=== PATIENT | female | born 1995 | race Caucasian/White ===

== ENCOUNTER 2019-06-30 11:48 | Inpatient (IN) ==
[2019-06-30] MEDS ORDERED: ALBUT/IPRATROP 3MG/0.5MG NEB 3 ML VIAL INH STA (12:24)
[2019-06-30] MEDS ORDERED: methylPREDNISolone 125 MG/2 ML VIAL IV STA (12:24)
[2019-06-30] MEDS ORDERED: SODIUM CHLORIDE 0.9% 1000ML 1,000 ML IV SCH (12:30)
[2019-06-30 12:54] LABS: Basophils # (auto) 0.03 K/uL (0-0.2); Basophils % (auto) 0.2 %; Eosinophils # (auto) 0.09 K/uL (0-0.5); Eosinophils % (auto) 0.6 %; Hematocrit (blood only) 35.6 % (37-47); Hemoglobin 12.4 g/dL (12.0-16.0); Immature Granulocytes # (auto) 0.03 K/uL (0.00-0.02); Immature Granulocytes % (auto) 0.2 %; Lymphocytes # (auto) 1.43 K/uL (1.2-3.4); Lymphocytes % (auto) 10.3 %; Mean Corpuscular Hemoglobin 28.9 pg (25-34); Mean Corpuscular Hgb Conc 34.8 g/dL (32-36); Mean Platelet Volume 8.1 fL (7.4-10.4); Monocytes # (auto) 0.86 K/uL (0.11-0.59); Monocytes % (auto) 6.2 %; Neutrophils # (auto) 11.41 K/uL (1.4-6.5); Neutrophils % (auto) 82.5 %; Platelet Count 396 K/uL (130-400); RDW Coefficient of Variation 12.8 % (11.5-14.5); RDW Standard Deviation 38.4 fL (36.4-46.3); Red Blood Count 4.29 M/uL (4.2-5.4); White Blood Count 13.85 K/uL (4.8-10.8)
[2019-06-30 13:10] LABS: Partial Thromboplastin Ratio 1.3; Partial Thromboplastin Time 34.3 Seconds (21.0-31.0); Prothrombin Time 10.6 Seconds (9.0-12.0)
[2019-06-30 13:15] LABS: D Dimer 990 ug/L FEU (0-500)
[2019-06-30 13:16] LABS: Albumin Level 2.9 gm/dl (3.4-5.0); BUN Creatinine Ratio 10.3 (10-20); Creatinine Clr Calc Pharmacy 122.3 ml/min; Est GFR (African American) 143.6; Est GFR (Non-African American) 123.9; Magnesium 2.1 mg/dl (1.8-2.4)
[2019-06-30 13:18] LABS: Albumin Globulin Ratio 0.6 (0.9-2); Bilirubin,Total 0.6 mg/dl (0.2-1); Total Protein 7.9 gm/dl (6.4-8.2)
--- NOTE | 2019-06-30 13:28 | XRay Report ---
XR chest 1V portable CLINICAL HISTORY: 24 years-old Female presenting with Dyspnea. TECHNIQUE: Portable upright AP view of the chest was obtained. COMPARISON: None. FINDINGS: Cardiomediastinal silhouette normal. Mild pulmonary vascular prominence. Patchy opacities in the left midlung and more dense opacities in the left lung base. A small left pleural effusion is not exclude d. There may also be a trace right pleural effusion. Osseous structures normal. Upper abdomen normal. IMPRESSION: 1. Patchy infiltrates in the left midlung and more dense infiltrates at the left lung base concernin g for multifocal pneumonia. ACT 112: Negative or not required by law. Electronically signed by: Luther Lubin M.D. 06/30/2019 1:26 PM
[2019-06-30 13:30] LABS: Influenza A virus by PCR Neg for Influ A (Neg); Influenza B virus by PCR Neg for Influ B (Neg)
[2019-06-30] MEDS ORDERED: OPTIRAY 320 125ml IV PRN (13:43)
--- NOTE | 2019-06-30 13:58 | CT Scan Report ---
CT angio chest PE protocol CLINICAL HISTORY: 24 years-old Female presenting with recent sinus infection, now with left-sided warren st and shoulder pain, multifocal pneumonia radiograph, clinical concern for pulmonary embolus. TECHNIQUE: Multidetector CT angiography of the chest was performed after administration of intravenou s contrast. 3-D volumetric and/or maximum intensity projection (MIP) images were subsequently reconst ructed for review. IV contrast: 120 mL of Optiray 320. One or more dose lowering techniques were used consistent with the principles of ALARA (as low as reasonably achievable), including automatic expos ure control, mA or kV adjustment to individual patient size, and/or use of iterative reconstruction. COMPARISON: None. CT DOSE (mGy.cm): The estimated cumulative dose is 226.06 mGy.cm. FINDINGS: Manager Integration topogram: Unremarkable. Pulmonary vasculature: The study is suboptimal for the assessment of the pulmonary vascular tree secondary to respiratory mo tion artifact. Filling defect in the segmental pulmonary arteries to the posterior basal left lower l obe no other pulmonary embolus is appreciated. Main pulmonary artery is not enlarged. No flattening o f the interventricular septum. No intracardiac filling defect. No reflux of contrast into the hepatic veins. Remaining chest: Soft tissues: Normal thyroid and thoracic inlet. View prominent left hilar lymph nodes. Normal aorta. Normal heart size. Small left pleural effusion, which is simple appearing. No evidence of pleural en hancement allowing for the phase of contrast. Upper abdomen normal. Lungs and airways: No pneumothorax. Bronchial wall thickening predominantly in the left lung in the l ower lobe. Pulmonary arteries are not significantly enlarged relative to adjacent bronchi. No interlo bular septal thickening. Consolidation in the superior lingula with tree-in-bud opacities more superi alana in the lingula and posterior apical left upper lobe. Patchy consolidation in the posterior basal left lower lobe. This is not all peripheral though is in the same distribution as the vascular abnor mality. Musculoskeletal: Normal osseous structures. IMPRESSION: 1. Findings highly suspicious for acute pulmonary embolus in segmental pulmonary arteries to the pos terior basal left lower lobe. No CT evidence of right heart strain. 2. Patchy consolidation in the posterior basal left lower lobe raises concern for pulmonary infarct given the distribution though the distribution is not all peripheral. Alternatively, this could relat e multifocal pneumonia. 3. Consolidation in the lingula without evidence of a regional pulmonary embolus. Extensive surround ing patchy tree-in-bud opacities in the left upper lobe. This is strongly suggestive of pneumonia wit h airway spread of infection. 4. Small left pleural effusion, which is simple appearing. Presumably this is a parapneumonic effusi on. The report will be called/faxed according to standard departmental protocol for a critical finding. ACT 112: Negative or not required by law. Electronically signed by: Luther Lubin M.D. 06/30/2019 1:57 PM
[2019-06-30] MEDS ORDERED: cefTRIAXone SODIUM 1,000 MG/50 ML BAG IV STA (14:13)
[2019-06-30] MEDS ORDERED: DOXYCYCLINE HYCLATE 100 MG CAP PO STA (14:13)
[2019-06-30] MEDS ORDERED: HEPARIN SODIUM/DEXTROSE 25,000 UNITS/500 ML BAG IV SCH (14:15)
--- NOTE | 2019-06-30 14:39 | History & Physical Report ---
Date of Service June 30, 2019 Assessment & Plan (1) Acute pulmonary embolism: Heparin IV drip. Will switch to PO Eliquis or Xarelto once found out the cost from her insurance. Would favor Xarelto given poor compliance with doxycycline as only once a day. Stop estrogen containing contraceptive. Given size of embolus and provoked from PNA would recommend shorter 3 month treatment but will leave final decision to PCP. No need for US venous dopplers as would not exchange mechanic. (2) Left lower lobe pneumonia: Ceftriaxone 1g daily, can likely change to PO antibiotics after second IV dose tomorrow. Switch doxycycline to azithromycin, given patient non-compliance with prior course concern is for resistance. Incentive spirometry, flutter valve - patient to take these home once discharged (3) Asthma exacerbation: Diagnosis based on improved with steroids and nebulizers previously Solu-medrol 125mg IV given in ER Continue Prednisone 40mg PO daily Duonebs Q4R + PRN I do not suspect she requires a maintenance inhaler based on her baseline functioning but recommend PFTs in approx 6 weeks. (4) Exercise-induced asthma: Albuterol PRN as outpatient. As above (5) Pericarditis: Possible. Diagnoses entertained due to typical positional nature of her pain. No widespread ST elevations on EKG however or friction rub on exam. Repeat EKG in AM. Troponin added to AM labs and if elevated at all would recommend echocardiogram. (6) Tachycardia: Secondary to pulmonary embolism and community acquired PNA as above. Give additional NSS 1L bolus now, however I suspect she is close to euvolemic at this point after 1L given in ER. (7) Anxiety: Continue citalopram 20mg PO daily. 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 Her symptoms started 2 weeks ago with typical URI Sx with sinus drainage, nasal congestion, post nasal drip and productive cough (started greenish but now clear). She initially went to [facility] and was started on 5 day course of prednisone for wheezing on the left side of her chest with sats 90% on RA. She felt this helped with her cough but as soon as she stopped her wheezing, chest tightness and coughing became worse again. Therefore she returned to [facility] again on Tuesday and was given nebulizer treatment in the office which helped a lot and she was started on doxycycline. However, she di not take this regularly and vomiting after taking some, she has taken none in the last 2 days. 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 On she started having lightheadedness and left sided rib pain forcing her to go home from work early. She has inspiratory sharp pain on her left ribs and left shoulder. Worse with coughing. Not sleeping due to pain as worse with lying down. She denies any family history of DVTs/PEs or autoimmune conditions. She has a personal history of exercise induced asthma but never had an asthma exacerbation requiring anything other than her albuterol prior to this. She is currently taking an estrogen containing oral contraceptive. Allergies Allergy/AdvReac Type Severity Reaction Status Date / Time vancomycin Allergy Rash Unverified 06/30/19 12:20 Home Medications Home Medications Medication Instructions Recorded Confirmed Type cetirizine [Zyrtec] 10 mg PO DAILY PRN 06/30/19 06/30/19 History citalopram [Celexa] 20 mg PO DAILY 06/30/19 06/30/19 History guanfacine 2 mg PO DAILY 06/30/19 06/30/19 History Past Med/Surg History Medical History (Updated 07/01/19 @ 03:29 by Fareed Bustamante MD) Anxiety Exercise-induced asthma Social History Preferred Language: Vietnamese Communication Ability: Effective Upper Trimmer Required: No Beliefs That Will Affect Care: None Current Living Situation: Significant Other current occupational status: student 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 Other Information That Helps Us Care for You: No Feels Safe at Home: Yes Safety Concerns: Feels Safe At This Time Smoking Status: Never smoker Hx Alcohol Use: Yes Alcohol type: beer Hx Substance Use: Yes substance use type: marijuana Last Used Substance Other:: 2 years ago Review of Systems Review of Systems: All systems reviewed & are unremarkable except as noted in HPI & below Physical Exam Constitutional: WD/WN, vitals as above Eyes: + anicteric sclerae; normal pupil size ENMT: external ear and nose normal, oropharynx normal Neck: trachea midline, no thyromegaly Respiratory: normal respiratory effort, + hyperresonance to percussion and + cough; no respiratory distress, no labored breathing, no retractions and does not use accessory muscles Auscultation: + diminished lung sounds (bibasal L > R) and + crackles (left sided); no rales, no rhonchi and no wheezes Cardiovascular: Rate/Rhythm: regular rhythm and + tachycardic Heart Sounds: no murmur Vessels: no JVD Extremities: normal capillary refill; no calf tenderness and no pedal edema Gastrointestinal (Abdomen): normal bowel sounds, soft, nontender, no hepatosplenomegaly Musculoskeletal: no cyanosis or clubbing, extremities motor strength 5/5 Skin: no rashes, warm and dry Neurologic: moves all extremities and awake; no focal motor deficits and not confused Psychiatric: A+Ox3, euthymic affect Genitourinary: no CVA tenderness Lymphatic: no cervical or axillary lymphadenopathy Results & Data Vital Signs (Past 12 Hours) Vital Signs Temp Pulse Pulse Resp BP Pulse Ox 06/30/19 13:48 115 H 19 133/83 99 06/30/19 13:30 111 H 99 06/30/19 13:00 109 H 21 95 06/30/19 12:45 114 H 21 96 06/30/19 12:30 113 H 20 96 06/30/19 12:21 105 H 96 06/30/19 12:18 110 H 136/89 97 06/30/19 11:55 36.4 C L 112 H 18 120/[address] angio chest PE protocol IMPRESSION: 1. Findings highly suspicious for acute pulmonary embolus in segmental pulmonary arteries to the posterior basal left lower lobe. No CT evidence of right heart strain. 2. Patchy consolidation in the posterior basal left lower lobe raises concern for pulmonary infarct given the distribution though the distribution is not all peripheral. Alternatively, this could relate multifocal pneumonia. 3. Consolidation in the lingula without evidence of a regional pulmonary emb olus. Extensive surrounding patchy tree-in-bud opacities in the left upper lobe. This is strongly suggestive of pneumonia with airway spread of infection. 4. Small left pleural effusion, which is simple appearing. Presumably this is a parapneumonic effusion. Medications Administered Ceftriaxone 1g IV IV standard heparin with bolus Solu-medrol 125mg IV ECG Indication: tachycardia Rate (beats per minute): 110 Rhythm: sinus tachycardia Findings: no ST elevation, no acute ischemic change and no prolonged QT Comparison ECG Date: no prior available Code Status & VTE Plan Code Status Full VTE Prophylaxis Plan VTE Prophylaxis will be ordered: Yes PG Care Time/CCT Total # of Minutes Spent Total Time Spent with Patient: Total time spent is greater than 50% in coordination of care (as documented) at patient's floor/unit and/or counseling patient: Coding Level of Care Code 73683 Initial Inpt Care Lvl 3 Diagnoses Acute pulmonary embolism I26.99 Acute cor pulmonale presence: unspecified Pulmonary embolism type: unspecified Left lower lobe pneumonia J18.9 Pneumonia type: due to unspecified organism Asthma exacerbation J45.21 Asthma severity: mild Asthma persistence: intermittent Exercise-induced asthma J45.990 Pericarditis I30.1 Pericarditis type: infectious Infectious pericarditis etiology: unspecified Chronicity: acute Tachycardia R00.0 Anxiety F41.9 (1) Acute pulmonary embolism Acute cor pulmonale presence: unspecified Pulmonary embolism type: unspecified Qualified Code(s): I26.99 - Other pulmonary embolism without acute cor pulmonale (2) Left lower lobe pneumonia Pneumonia type: due to unspecified organism Qualified Code(s): J18.9 - Pneumonia, unspecified organism (3) Pericarditis Pericarditis type: infectious Infectious pericarditis etiology: unspecified Chronicity: acute Qualified Code(s): I30.1 - Infective pericarditis (4) Asthma exacerbation Asthma severity: mild Asthma persistence: intermittent Qualified Code(s): J45.21 - Mild intermittent asthma with (acute) exacerbation :
[2019-06-30] MEDS ORDERED: SODIUM CHLORIDE 0.9% 1000ML 1,000 ML IV ONE (14:43)
[2019-06-30 14:49] LABS: Pregnancy Test, Serum Negative (Negative)
[2019-06-30] MEDS ORDERED: HEPARIN SOD (PORCINE) 1000 UNIT/ML 10 ML VIAL ONE (14:55)
--- NOTE | 2019-06-30 15:12 | Emergency Department Note ---
Entered by Nicole Flores acting as a scribe for History of Present Illness General Chief complaint: Abdominal Pain Stated complaint: SOB,SHARP ABDOMINAL PAIN AND SHOULDER PAIN Time Seen by Provider: 06/30/19 12:07 Source: patient and family (mother) Mode of arrival: ambulatory Limitations: no limitations History of Present Illness Provider complaint: Shortness of breath Onset (ago): day(s) 2 Location: chest Pain Consistency: + other (worsening) Maximum Pain Intensity: 6 Quality: + other (shortness of breath) Associated symptoms: + cough, + fever/chills, + loss of appetite, + nausea/vomiting (positive nausea, negative vomiting) and + other (Additional symptoms: left rib pain, left shoulder pain, difficulty sleeping. Denies: diarrhea, urinary symptoms) Treatments prior to arrival: none The patient is a 24 year old female with a history of anxiety who presents to the Emergency Room with complaints of worsening shortness of breath starting 2 days ago. The patient reports that she becomes winded after walking up the stairs to her apartment, which is unusual for her. She states that her shortness of breath has been accompanied by pain is located in her left ribs and left shoulder. She notes that her pain worsens with coughing and lying either flat and on her side. She notes that her pain throbs when she lies these ways. She adds that she has had difficulty sleeping secondary to her pain. The patient also complains of some fever and loss of appetite but otherwise denies any vomiting, diarrhea, and urinary symptoms. She mentions that she had a sinus infection 2 weeks ago and was given a course of antibiotics at [facility]. She explains that she started taking these antibiotics 12 days ago and that they made her nauseous. They patient reports that she is on control and does not think that she is . She denies smoking. Home Medications Home Medications Medication Instructions Recorded Confirmed Type cetirizine [Zyrtec] 10 mg PO DAILY PRN 06/30/19 06/30/19 History citalopram [Celexa] 20 mg PO DAILY 06/30/19 06/30/19 History guanfacine 2 mg PO DAILY 06/30/19 06/30/19 History azithromycin [Zithromax] 250 mg PO QAM #4 tab 07/01/19 Rx cefdinir 300 mg PO BID 6 Days #12 cap 07/01/19 Rx prednisone 40 mg PO DAILY #10 tab 07/01/19 Rx rivaroxaban [Xarelto] 1 ea PO BID #51 ea 07/01/19 Rx rivaroxaban [Xarelto] 20 mg PO DAILY #30 tab 07/01/19 Rx Allergies Allergy/AdvReac Type Severity Reaction Status Date / Time vancomycin Allergy Rash Unverified 06/30/19 12:20 Past Med/Surg History Social History Preferred Language: Beninese Communication Ability: Effective Contracting Executive Required: No Beliefs That Will Affect Care: None Current Living Situation: Significant Other current occupational status: student 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 and A total of 10 systems reviewed and were otherwise negative Physical Exam Vital Signs Vital Signs - 24 hr 06/30/19 11:55 06/30/19 12:18 06/30/19 12:21 Temperature 36.4 C L Temperature Source Oral Pulse Rate 112 H 110 H 105 H Pulse Rate [Apical] Pulse Rate from SpO2 Sensor 108 H 104 H Respiratory Rate 18 Respiratory Effort / Characteristics Non-Labored Spontaneous Respiratory Depth Normal Blood Pressure 120/67 136/89 Blood Pressure Mean 84 93 Blood Pressure Position Sitting Pulse Oximetry 95 97 96 Oxygen Delivery Method Room Air Sepsis Recent Fever Within 48 Hours No Sepsis Action Taken by Nursing No Action Required 06/30/19 12:30 06/30/19 12:45 06/30/19 13:00 Temperature Temperature Source Pulse Rate 113 H 109 H Pulse Rate [Apical] 114 H Pulse Rate from SpO2 Sensor 113 H 111 H Respiratory Rate 20 21 21 Respiratory Effort / Characteristics Non-Labored Spontaneous Respiratory Depth Blood Pressure Blood Pressure Mean Blood Pressure Position Pulse Oximetry 96 96 95 Oxygen Delivery Method Room Air Sepsis Recent Fever Within 48 Hours Sepsis Action Taken by Nursing 06/30/19 13:30 06/30/19 13:48 Temperature Temperature Source Pulse Rate 111 H 115 H Pulse Rate [Apical] Pulse Rate from SpO2 Sensor 110 H 115 H Respiratory Rate 19 Respiratory Effort / Characteristics Respiratory Depth Blood Pressure 133/83 Blood Pressure Mean 91 Blood Pressure Position Pulse Oximetry 99 99 Oxygen Delivery Method Sepsis Recent Fever Within 48 Hours Sepsis Action Taken by Nursing Vital signs reviewed. General: Acutely ill-appearing female, in no significant distress. HEENT: No scleral icterus, PERRLA, neck supple. Atraumatic. Cardiovascular: Tachycardic rate and regular rhythm, no extra sounds. Pulmonary: Clear to auscultation bilaterally, slightly increased work of breathing. Abdomen: Soft, nontender, nondistended, positive bowel sounds. Musculoskeletal: Atraumatic, no peripheral edema. Neurologic: Patient awake alert and oriented x 3 Skin: Warm, dry, no rash Course Course 1214: The patient was evaluated in room C2B, and a complete history and physical examination were performed. 1435: I discussed the patient's case with Dr. Dianna Oconnor. Dr. Bustamante will evaluate the patient for further management. Consultations Consultation #1: I discussed the patient's case with Dr. Dianna Oconnor. Dr. Bustamante will evaluate the patient for further management. Time: 14:35 Administered Medications Discontinued Medications Acetaminophen (Tylenol) 650 mg PO Q4H PRN PRN Reason: pain/fever Stop: 07/30/19 17:27 Last Admin: 07/01/19 08:25 Dose: 650 mg Documented by: [id number] Albuterol (Duoneb) 3 ml INH NOW STA Stop: 06/30/19 12:25 Last Admin: 06/30/19 12:45 Dose: 3 ml Documented by: [id number] Albuterol (Duoneb) 3 ml NEB Q4R SHALONDA Stop: 07/30/19 22:59 Last Admin: 07/01/19 11:49 Dose: 3 ml Documented by: [id number] Admin: 07/01/19 07:34 Dose: 3 ml Documented by: [id number] Admin: 07/01/19 03:04 Dose: 3 ml Documented by: [id number] Admin: 06/30/19 23:05 Dose: 3 ml Documented by: [id number] Azithromycin (Zithromax) 500 mg PO ONE ONE Stop: 07/01/19 09:01 Last Admin: 07/01/19 08:28 Dose: 500 mg Documented by: [id number] Citalopram Hydrobromide (Celexa) 20 mg PO DAILY SHALONDA Stop: 07/31/19 08:59 Last Admin: 07/01/19 08:26 Dose: 20 mg Documented by: [id number] Doxycycline Hyclate (Vibramycin) 100 mg PO NOW STA Stop: 06/30/19 14:14 Last Admin: 06/30/19 15:00 Dose: 100 mg Documented by: [id number] Doxycycline Hyclate (Vibramycin) 100 mg PO BID SHALONDA Stop: 07/06/19 21:01 Last Admin: 06/30/19 20:42 Dose: 100 mg Documented by: [id number] Guaifenesin (Mucinex) 1,200 mg PO Q12 [facility] Stop: 07/31/19 08:59 Last Admin: 07/01/19 08:27 Dose: 1,200 mg Documented by: [id number] Heparin Sodium (Porcine) (Heparin Iv Bolus) Confirm Administered Dose 10,000 units .ROUTE .[facility] Stop: 06/30/19 14:56 Last Admin: 06/30/19 14:57 Dose: 5,000 units Documented by: [id number] Cosigned by: [id number] Heparin Sodium/Dextrose () 1 ea IV NOW STA; Protocol Stop: 06/30/19 14:14 Last Admin: 06/30/19 15:06 Dose: Not Given Documented by: [id number] Sodium Chloride (Nss 1000ml) 1,000 mls @ 999 mls/hr IV .Q1H1M [facility] Stop: 06/30/19 13:30 Last Infusion: 06/30/19 13:56 Dose: 0 mls/hr Documented by: [id number] Admin: 06/30/19 13:01 Dose: 999 mls/hr Documented by: [id number] Ceftriaxone Sodium (Rocephin) 1,000 mg in 50 mls @ 100 mls/hr IV NOW STA Stop: 06/30/19 14:42 Last Infusion: 06/30/19 15:31 Dose: 0 mls/hr Documented by: [id number] Admin: 06/30/19 15:00 Dose: 100 mls/hr Documented by: [id number] Heparin Sodium/Dextrose (Heparin Sodium/Dextrose) 25,000 units in 500 mls @ 22 mls/hr IV .[id number] [facility]; Protocol Stop: 07/30/19 14:14 Last Titration: 07/01/19 13:32 Dose: 0 units/hr, 0 mls/hr Documented by: [id number] Cosigned by: [id number] Titration: 07/01/19 07:02 Dose: 1,100 units/hr, 22 mls/hr Documented by: [id number] Cosigned by: [id number] Titration: 06/30/19 19:27 Dose: 1,100 units/hr, 22 mls/hr Documented by: [id number] Cosigned by: [id number] Admin: 06/30/19 14:59 Dose: 1,100 units/hr, 22 mls/hr Documented by: [id number] Cosigned by: [id number] Sodium Chloride (Nss 1000ml) 1,000 mls @ 999 mls/hr IV .Q1H1M ONE Stop: 06/30/19 15:43 Last Infusion: 06/30/19 16:43 Dose: 0 mls/hr Documented by: [id number] Admin: 06/30/19 15:31 Dose: 999 mls/hr Documented by: [id number] Ceftriaxone Sodium 1,000 mg/ (Dextrose) 50 mls @ 100 mls/hr IV Q24H SHALONDA; Protocol Stop: 07/06/19 14:29 Last Infusion: 07/01/19 14:16 Dose: 0 mls/hr Documented by: [id number] Admin: 07/01/19 13:06 Dose: 100 mls/hr Documented by: [id number] Lactated Ringer's (Lr) 1,000 mls @ 999 mls/hr IV .Q1H1M ONE Stop: 06/30/19 23:32 Last Infusion: 07/01/19 00:14 Dose: 0 mls/hr Documented by: [id number] Admin: 06/30/19 23:11 Dose: 999 mls/hr Documented by: [id number] Ioversol (Optiray 320 125ml) 120 ml IV ONCE PRN PRN Reason: Interaction Checking Stop: 07/04/19 13:42 Last Admin: 06/30/19 13:43 Dose: 120 ml Documented by: [id number] Methylprednisolone (Solumedrol) 125 mg IV NOW STA Stop: 06/30/19 12:25 Last Admin: 06/30/19 13:01 Dose: 125 mg Documented by: [id number] Prednisone (Prednisone) 40 mg PO QAM [facility] Stop: 07/06/19 08:59 Last Admin: 07/01/19 08:27 Dose: 40 mg Documented by: [id number] Rivaroxaban (Xarelto) 15 mg PO BID SHALONDA Stop: 07/22/19 12:29 Last Admin: 07/01/19 13:06 Dose: 15 mg Documented by: [id number] Critical Care Time Critical Care Time: Yes Total Critical Care Time: 35 I have personally spent 35 minutes of critical care time in the direct management of this patient. This includes bedside care, interpretation of diagnostic studies, and testing, discussion with consultants, patient, and fa fatuma members, and other required patient management activities. This 35 minutes is in excess of all separately billable procedures. Medical Decision Making Differential Diagnosis Differential diagnosis includes: infections, reactive airway disease, pneumonia, pneumothorax, COPD, CHF, cardiac ischemia, pulmonary embolism, musculoskeletal, gastrointestinal, as well as others were entertained. Medical Records Attestation: I reviewed the patient's medical records. Home Medications Current Medication List: was personally reviewed by me Laboratory Data Attestation: I reviewed the patient's lab results. Result diagrams: 07/01/19 04:55 07/01/19 04:55 Lab Results 06/30/19 06/30/19 06/30/19 Range/Units 12:30 12:30 12:30 WBC 13.85 H (4.8-10.8) K/uL RBC 4.29 (4.2-5.4) M/uL Hgb 12.4 (12.0-16.0) g/dL Hct 35.6 L (37-47) % MCV 83.0 (80-100) fL MCH 28.9 (25-34) pg MCHC 34.8 (32-36) g/dL RDW Std Deviation 38.4 (36.4-46.3) fL RDW Coeff of Amira 12.8 (11.5-14.5) % Plt Count 396 (130-400) K/uL MPV 8.1 (7.4-10.4) fL Immature Gran % (Auto) 0.2 % Neut % (Auto) 82.5 % Lymph % (Auto) 10.3 % Blount % (Auto) 6.2 % Eos % (Auto) 0.6 % Baso % (Auto) 0.2 % Immature Gran # (Auto) 0.03 H (0.00-0.02) K/uL Neut # (Auto) 11.41 H (1.4-6.5) K/uL Lymph # (Auto) 1.43 (1.2-3.4) K/uL Blount # (Auto) 0.86 H (0.11-0.59) K/uL Eos # (Auto) 0.09 (0-0.5) K/uL Baso # (Auto) 0.03 (0-0.2) K/uL PT 10.6 (9.0-12.0) Seconds INR 1.0 (0.9-1.1) APTT 34.3 H (21.0-31.0) Seconds PTT Ratio 1.3 D-Dimer 990 H* (0-500) ug/L FEU Sodium 137 (136-145) mmol/L Potassium 4.0 (3.5-5.1) mmol/L Chloride 107 (98-107) mmol/L Carbon Dioxide 25 (21-32) mmol/L Anion Gap 5.0 (3-11) BUN 7 (7-18) mg/dl Creatinine 0.67 (0.6-1.2) mg/dl Est Cr Clr Drug Dosing 122.3 ml/min Est GFR ( Amer) 143.6 Est GFR (Non-Af Amer) 123.9 BUN/Creatinine Ratio 10.3 (10-20) Glucose 74 (70-99) mg/dl Calcium 9.0 (8.5-10.1) mg/dl Magnesium 2.1 (1.8-2.4) mg/dl Total Bilirubin 0.6 (0.2-1) mg/dl AST 13 L (15-37) U/L ALT 34 (12-78) U/L Alkaline Phosphatase 93 (45-117) U/L Total Protein 7.9 (6.4-8.2) gm/dl Albumin 2.9 L (3.4-5.0) gm/dl Globulin 5.0 H (2.5-4.0) gm/dl Albumin/Globulin Ratio 0.6 L (0.9-2) Imaging Data Radiologist's Impression: Radiology results as stated below per my review and the radiologist's interpretation: XR chest 1V portable CLINICAL HISTORY: 24 years-old Female presenting with Dyspnea. TECHNIQUE: Portable upright AP view of the chest was obtained. COMPARISON: None. FINDINGS: Cardiomediastinal silhouette normal. Mild pulmonary vascular prominence. Patchy opacities in the left midlung and more dense opacities in the left lung base. A small left pleural effusion is not excluded. There may also be a trace right pleural effusion. Osseous structures normal. Upper abdomen normal. IMPRESSION: 1. Patchy infiltrates in the left midlung and more dense infiltrates at the left lung base concerning for multifocal pneumonia. ACT 112: Negative or not required by law. Electronically signed by: Luther Lubin M.D. 06/30/2019 1:[address] angio chest PE protocol CLINICAL HISTORY: 24 years-old Female presenting with recent sinus infection, now with left-sided chest and shoulder pain, multifocal pneumonia radiograph, clinical concern for pulmonary embolus. TECHNIQUE: Multidetector CT angiography of the chest was performed after administration of intravenous contrast. 3-D volumetric and/or maximum intensity projection (MIP) images were subsequently reconstructed for review. IV contrast: 120 mL of Optiray 320. One or more dose lowering techniques were used consistent with the principles of ALARA (as low as reasonably achievable), including automatic exposure control, mA or kV adjustment to individual patient size, and/or use of iterative reconstruction. COMPARISON: None. CT DOSE (mGy.cm): The estimated cumulative dose is 226.06 mGy.cm. 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 Pulmonary vasculature: The study is suboptimal for the assessment of the pulmonary vascular tree secondary to respiratory motion artifact. Filling defect in the segmental pulmonary arteries to the posterior basal left lower lobe no other pulmonary embolus is appreciated. Main pulmonary artery is not enlarged. No flattening of the interventricular septum. No intracardiac filling defect. No reflux of contrast into the hepatic veins. Remaining chest: Soft tissues: Normal thyroid and thoracic inlet. View prominent left hilar lymph nodes. Normal aorta. Normal heart size. Small left pleural effusion, which is simple appearing. No evidence of pleural enhancement allowing for the phase of contrast. Upper abdomen normal. Lungs and airways: No pneumothorax. Bronchial wall thickening predominantly in the left lung in the lower lobe. Pulmonary arteries are not significantly enlarged relative to adjacent bronchi. No interlobular septal thickening. Consolidation in the superior lingula with tree-in-bud opacities more superiorly in the lingula and posterior apical left upper lobe. Patchy consolidation in the posterior basal left lower lobe. This is not all peripheral though is in the same distribution as the vascular abnormality. Musculoskeletal: Normal osseous structures. IMPRESSION: 1. Findings highly suspicious for acute pulmonary embolus in segmental pulmonary arteries to the posterior basal left lower lobe. No CT evidence of right heart strain. 2. Patchy consolidation in the posterior basal left lower lobe raises concern for pulmonary infarct given the distribution though the distribution is not all peripheral. Alternatively, this could relate multifocal pneumonia. 3. Consolidation in the lingula without evidence of a regional pulmonary embolus. Extensive surrounding patchy tree-in-bud opacities in the left upper lobe. This is strongly suggestive of pneumonia with airway spread of infection. 4. Small left pleural effusion, which is simple appearing. Presumably this is a parapneumonic effusion. The report will be called/faxed according to standard departmental protocol for a critical finding. ACT 112: Negative or not required by law. Electronically signed by: Luther Lubin M.D. 06/30/2019 1:57 PM Dictated: 06/30/19 1348 Transcribed: 06/30/[id number] ECG Data Attestation: I personally reviewed and interpreted this ECG as follows: Indication: + SOB/dyspnea Rate (beats per minute): 110 Rhythm: + sinus tachycardia ECG Intervals/blocks: + Normal QT-c (441) ECG ST segments: no ST depression and no ST elevation ECG Findings: no PACs and no PVCs Additional Comments: An order for cardiac monitoring was placed and the patient is found to be in a sinus tachycardia at 110 bpm. Blood Pressure Blood Pressure Findings: Elevated blood pressure Blood Pressure Disposition: further management by hospitalist MDM Narrative This patient was evaluated and appeared to be in no significant distress. IV access was obtained and laboratory work was drawn. The patient is noted to be tachycardic and was hydrated with normal saline solution. EKG confirms a sinus tachycardia. Chest x-ray was performed and reveals patchy bilateral pulmonary infiltrates. D-dimer is positive. Chest CT was performed and is consistent with left lower lobe PE with pulmonary infarct as well as a lingular infiltrate. Blood cultures were obtained and the patient was medicated with IV doxycycline and ceftriaxone. IV heparin drip was ordered. The patient will be evaluated by the hospitalist service for further management. Patient and family are aware of the plan and agree. Impression & Plan Left lower lobe pneumonia, Acute pulmonary embolism, Tachycardia Discharge Plan Visit Data *Final* Discharge Date/Time: 06/30/19 16:19 Chief Complaint: Abdominal Pain Stated Complaint: SOB,SHARP ABDOMINAL PAIN AND SHOULDER PAIN ED Provider: Zofia Serrano Discharge Problem: Left lower lobe pneumonia, Acute pulmonary embolism, Tachycardia Patient Disposition: Admitted As Inpatient Condition: Fair Discharge Instructions Interventions: ED Discharge Assessment Last Done: 06/30/19 16:19 Discharge Problem: Left lower lobe pneumonia Qualifiers: Pneumonia type: due to unspecified organism Qualified Code(s): J18.9 - Pneumonia, unspecified organism Acute pulmonary embolism Qualifiers: Pulmonary embolism type: unspecified Acute cor pulmonale presence: unspecified Qualified Code(s): I26.99 - Other pulmonary embolism without acute cor pulmonale The scribe's documentation has been prepared under my direction and personally reviewed by me in its entirety. I confirm that the note above accurately reflects all work, treatment, procedures, and medical decision making performed by me.
--- NOTE | 2019-06-30 15:56 | Electrocardiogram Report ---
Test Reason : Blood Pressure : / mmHG Vent. Rate : 110 BPM Atrial Rate : 110 BPM P-R Int : 136 ms QRS Dur : 074 ms QT Int : 326 ms P-R-T Axes : 056 059 027 degrees QTc Int : 441 ms Sinus tachycardia Normal ECG No previous ECGs available Confirmed by Jeff Cruz ([id number]) on 06/30/2019 3:56:29 PM Referred By: REFERRED SELF Confirmed By:Jeff Cruz
[2019-06-30] MEDS ORDERED: ACETAMINOPHEN 325 MG TAB PO PRN (17:28)
[2019-06-30] MEDS ORDERED: CETIRIZINE HCL 10 MG TABLET PO PRN (17:28)
[2019-06-30 18:36] LABS: Appearance Urine Clear (Clear); Bacteria Urine Automated 1+ (Negative); Bilirubin Urine Negative (Negative); Blood Urine Negative (Negative); Color Urine Yellow; Glucose Urine UA Negative (Negative); Ketones Urine 2+ (Negative); Leukocyte Esterase Urine Trace (Negative); Nitrite Urine Negative (Negative); Protein Urine Negative (Negative); RBC Urine Automated 0-4 /hpf (0-4); Specific Gravity Urine 1.016 (1.000-1.030); Urobilinogen Urine Negative (Negative); pH Urine 6.5 (4.5-7.5)
[2019-06-30] MEDS ORDERED: DOXYCYCLINE HYCLATE 100 MG CAP PO SCH (21:00)
[2019-06-30 21:23] LABS: Partial Thromboplastin Ratio 2.4
[2019-06-30 21:24] LABS: Partial Thromboplastin Time 65.7 Seconds (21.0-31.0)
[2019-06-30] MEDS ORDERED: LACTATED RINGER'S 1,000 ML IV ONE (22:32)
[2019-06-30] MEDS: ALBUT/IPRATROP 3MG/0.5MG NEB 3 ML VIAL NEB SCH (23:05)
[2019-07-01] MEDS: ALBUT/IPRATROP 3MG/0.5MG NEB 3 ML VIAL NEB SCH ×3 (03:04→11:49)
[2019-07-01 05:25] LABS: Basophils # (auto) 0.01 K/uL (0-0.2); Basophils % (auto) 0.1 %; Hematocrit (blood only) 33.1 % (37-47); Hemoglobin 11.2 g/dL (12.0-16.0); Immature Granulocytes # (auto) 0.02 K/uL (0.00-0.02); Immature Granulocytes % (auto) 0.2 %; Lymphocytes # (auto) 0.97 K/uL (1.2-3.4); Lymphocytes % (auto) 10.3 %; Mean Corpuscular Hemoglobin 28.3 pg (25-34); Mean Corpuscular Hgb Conc 33.8 g/dL (32-36); Mean Corpuscular Volume 83.6 fL (80-100); Mean Platelet Volume 8.6 fL (7.4-10.4); Monocytes # (auto) 0.77 K/uL (0.11-0.59); Monocytes % (auto) 8.2 %; Neutrophils # (auto) 7.67 K/uL (1.4-6.5); Neutrophils % (auto) 81.2 %; Platelet Count 362 K/uL (130-400); RDW Coefficient of Variation 12.6 % (11.5-14.5); RDW Standard Deviation 38.3 fL (36.4-46.3); Red Blood Count 3.96 M/uL (4.2-5.4); White Blood Count 9.44 K/uL (4.8-10.8)
[2019-07-01 05:49] LABS: BUN Creatinine Ratio 13.3 (10-20); Blood Urea Nitrogen 8 mg/dl (7-18); Calcium 8.9 mg/dl (8.5-10.1); Carbon Dioxide 23 mmol/L (21-32); Chloride 109 mmol/L (98-107); Creatinine Clr Calc Pharmacy 141.2 ml/min; Est GFR (African American) > 150.0; Est GFR (Non-African American) 129.9; Glucose 165 mg/dl (70-99); Potassium 3.6 mmol/L (3.5-5.1); Sodium 138 mmol/L (136-145)
[2019-07-01 05:53] LABS: Troponin I < 0.015 ng/ml (0-0.045)
[2019-07-01 06:23] LABS: Partial Thromboplastin Ratio 2.2; Partial Thromboplastin Time 58.7 Seconds (21.0-31.0)
[2019-07-01] MEDS ORDERED: guaiFENesin 600 MG TABCR PO SCH (09:00)
[2019-07-01] MEDS ORDERED: AZITHROMYCIN 250 MG TAB PO ONE (09:00)
[2019-07-01] MEDS ORDERED: predniSONE 20 MG TAB PO SCH (09:00)
[2019-07-01] MEDS ORDERED: CITALOPRAM 20 MG TAB PO SCH (09:00)
[2019-07-01] MEDS ORDERED: RIVAROXABAN 15 MG TAB PO SCH ×2 (12:30→21:00)
--- NOTE | 2019-07-01 13:17 | XCELERA ---
[id number] \\[id number]
--- NOTE | 2019-07-01 13:48 | Discharge Summary ---
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 Her symptoms started 2 weeks ago with typical URI Sx with sinus drainage, nasal congestion, post nasal drip and productive cough (started greenish but now clear). She initially went to [facility] and was started on 5 day course of prednisone for wheezing on the left side of her chest with sats 90% on RA. She felt this helped with her cough but as soon as she stopped her wheezing, chest tightness and coughing became worse again. Therefore she returned to [facility] again on Tuesday and was given nebulizer treatment in the office which helped a lot and she was started on doxycycline. However, she di not take this regularly and vomiting after taking some, she has taken none in the last 2 days. 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 On she started having lightheadedness and left sided rib pain forcing her to go home from work early. She has inspiratory sharp pain on her left ribs and left shoulder. Worse with coughing. Not sleeping due to pain as worse with lying down. She denies any family history of DVTs/PEs or autoimmune conditions. She has a personal history of exercise induced asthma but never had an asthma exacerbation requiring anything other than her albuterol prior to this. She is currently taking an estrogen containing oral contraceptive. Admission Exam Per Admitting Provider Constitutional: WD/WN, vitals as above Eyes: + anicteric sclerae; normal pupil size ENMT: external ear and nose normal, oropharynx normal Neck: trachea midline, no thyromegaly Respiratory: normal respiratory effort, + hyperresonance to percussion and + cough; no respiratory distress, no labored breathing, no retractions and does not use accessory muscles Auscultation: + diminished lung sounds (bibasal L > R) and + crackles (left sided); no rales, no rhonchi and no wheezes Cardiovascular: Rate/Rhythm: regular rhythm and + tachycardic Heart Sounds: no murmur Vessels: no JVD Extremities: normal capillary refill; no calf ten derness and no pedal edema Gastrointestinal (Abdomen): normal bowel sounds, soft, nontender, no hepatosplenomegaly Musculoskeletal: no cyanosis or clubbing, extremities motor strength 5/5 Skin: no rashes, warm and dry Neurologic: moves all extremities and awake; no focal motor deficits and not confused Psychiatric: A+Ox3, euthymic affect Genitourinary: no CVA tenderness Lymphatic: no cervical or axillary lymphadenopathy Principal Diagnosis Acute pulmonary embolism, Left lower lobe pneumonia Discharge Exam General: Resting comfortably HEENT: NC/AT; PERRLA with EOMI; [place] conjunctiva, MMM. No erythema of posterior pharynx Neck: Supple and nontender Cardiac: Tachycardic Lungs: CTA bilaterally Abdomen: Bowel normoactive X 4; Nontender to palpation Extremities: Warm. No edema present Neuro: No focal weakness Skin: No rash Discharge Data Allergies Allergy/AdvReac Type Severity Reaction Status Date / Time vancomycin Allergy Rash Unverified 06/30/19 12:20 Ordered Studies 06/30/19 13:18 CT angio chest PE protocol Stat Hospital Course (1) Acute pulmonary embolism: Presented with chest pain and SOB. Chest CT showed acute PE in segmental pulm arteries to posterior basal left lower lobe. No evidence of right heart strain. D/c'ed oral control agent. Started heparin drip; converted to Xarelto on 07/01. Will need prior auth prior to picking up script at pharmacy -- pt. was instructed to contact PCP on Tuesday. She was provided a 3 day supply from our pharmacy. Echo showed preserved EF, no evidence of right heart strain. Labs, including factor V leiden, prothrombin time and homocysteine level, all pending. Cannot obtain remainder of hypercoaguable panel due to heparin use. (2) Left lower lobe pneumonia: CT chest showed patchy consolidation in VAMSHI. Received Ceftriaxone 1 gm IV daily. & Azithromycin. Converted to PO Cefdinir and Azithromycin as outpatient. IS and flutter valve. (3) Asthma exacerbation: Solu-medrol 125 mg IV in the ER. Will take Prednisone taper as outpatient. Recommend PFTs in 6 weeks. (4) Exercise-induced asthma: Albuterol prn. (5) Pericarditis: Echo showed trace pericardial effusion. No widespread ST elevations noted on EKG. Trop was negative. (6) Tachycardia: Secondary to PE and community acquired PNA. Improved with IV fluids. (7) Anxiety: Continue Celexa 20 mg daily. Discharged to home on 2/9/20. Total Time Total Time Spent Total Time Spent (In Minutes): >30 minutes Total Time Includes: Examination of the Patient, Discharge Planning, Medication Reconciliation, Communication With Other Providers and Other Discharge Plan Discharge Items Patient Disposition: Home - Self-Care Reason For Visit: ABD PAIN Discharge Diagnosis: Acute pulmonary embolism, Left lower lobe pneumonia, Asthma exacerbation Condition on Discharge: Fair Goals: You have been hospitalized for an acute medical problem. During your stay at [facility], we have made an effort to correct the problem that brought you to the hospital while keeping you as comfortable as possible. Medications were used to bring your condition under control and your discharge instructions will include directions for any medications you should take after leaving the hospital. Please make sure you see your Primary Care Provider as part of your follow up plan. Activity: As commented below Exercise/Sports: Wait until after follow-up appointment Non-emergency contact: Primary Care Provider Call non-emergency contact if: you have any medication questions, your symptoms worsen and you have a fever Follow-up/Referrals: PT,DECLINED [Primary Care Provider] - (Please follow up with primary care provider in 5-7 days. ) Diet: Regular Addtl Attending Provider Instructions: 1. Acute pulmonary embolism * Xarelto requires a prior authorization -- temporary 3 day supply was provided at discharge. Please contact your primary care provider tomorrow to discuss obtaining prior authorization. * Please discontinue use of control at home. * Please follow up with PCP in 5-7 days to discuss this hospitalization/pending labs. 2. Left lower lobe pneumonia * Please take Cefdinir 300 mg twice daily and Azithromycin 250 mg daily to complete course of antibiotics for infection. * Please take Prednisone taper as follows: - Prednisone 40 mg (4 tablets) on 07/02. - Prednisone 30 mg (3 tablets) on 07/03. - Prednisone 20 mg (2 tablets) on 07/04. - Prednisone 10 mg (1 tablet) on 07/05. Pending Studies at Discharge: Yes Studies:: Hypercoaguable studies pending. Urine culture pending. Stand-Alone Forms: [facility] Medications and DC Order Prescriptions: New Xarelto 15 mg (42)- 20 mg (9) tablets,dose pack 1 ea PO BID Qty: 51 RF: 0 Xarelto 20 mg tablet 20 mg PO DAILY Qty: 30 RF: 1 azithromycin [Zithromax] 250 mg Tablet 250 mg PO QAM Qty: 4 RF: 0 cefdinir 300 mg capsule 300 mg PO BID 6 Days Qty: 12 RF: 0 prednisone 10 mg tablet 40 mg PO DAILY Qty: 10 RF: 0 Continued cetirizine [Zyrtec] 10 mg Tablet 10 mg PO DAILY PRN (Reason: Allergic Symptoms) RF: 0 citalopram [Celexa] 20 mg Tablet 20 mg PO DAILY RF: 0 guanfacine 2 mg Tablet Extended Release 24 Hr 2 mg PO DAILY RF: 0 Discharge Orders: Discharge Order (Routine); Ordered 07/01/19 Ordered By: Juan Rod Admission Data Admit Date/Time: 06/30/19 14:59 Attending Provider: Juan Rod Admit Provider: Fareed Bustamante Primary Care Provider: PT,ANGELIA Other Interventions: Discharge Summary Assessment (RN) Last Done: 07/01/19 13:42 DC Date/Time DO NOT enter until pt leaves facility: 07/01/19 14:40 Supervising Physician Co-Signing Physician Notes Patient seen and examined on the day of discharge. I agree with the discharge summary by Tammy DE PAZ. I have reviewed the chart including labs, imaging and plans for discharge. patient feeling a lot better, breathing easy on room air, coughing less, no fever still with slight pleuritic pain with deep breathing discussed plan for Xarelto with patient and her mother, we will provide a few days worth she knows to complete a course of antibiotics, plans to return home to [facility] discussed with her that she should discuss alternative form of control with her sole layer hand - Acute PE with small pulmonary infarction treated initially with heparin drip will transition to Xarelto 15mg BID x 21 days then 20mg daily hypercoagulable panel sent out, PCP will need to follow up due to insurance, she would require pre-authorization, cannot be done on Tuesday will provide patient with 3 day supply of the Xarelto 15mg BID she can follow up with PCP and work through her insurance, provided with card to get 1st month free - Pneumonia: complete course of Zithromax and Cefdinir Coding Level of Care Code D/C Day Management >30 mins Diagnoses Acute pulmonary embolism I26.99 Acute cor pulmonale presence: unspecified Pulmonary embolism type: unspecified Left lower lobe pneumonia J18.9 Pneumonia type: due to unspecified organism Asthma exacerbation J45.21 Asthma persistence: intermittent Asthma severity: mild Exercise-induced asthma J45.990 Pericarditis I30.1 Chronicity: acute Infectious pericarditis etiology: unspecified Pericarditis type: infectious Tachycardia R00.0 Anxiety F41.9
[2019-07-01] MEDS ORDERED: cefTRIAXone SODIUM 1,000 MG in DEXTROSE 5% 50 ML IV SCH (14:00)
[2019-07-02] MEDS ORDERED: AZITHROMYCIN 250 MG TAB PO SCH (09:00)
== END 2019-07-01 14:40 | disposition home or self-care (01) | DRG 175 ==
LOC: ED 11:48 → SUATTDRO 14:59 → 3W 14:59